=== PATIENT | female | born 1955 | race Caucasian/White ===

== ENCOUNTER 2017-02-28 05:22 | Day surgery (SDC) | payer OTHER ==
[~2017-02-28 05:22] MED LIST: ADVIL200 M2 PO; ALBUTEROL17 GM; ASPIRIN EC81 MG PO; ATIVAN0.5 M1 PO; BIOTIN PO; BP MED; CYANOCOBAL1000 MCG/3 SC; CYMBALTA60 M1 PO; EFFEXOR XR150 MG; ENTERIC COATED325 M PO; GLUCOPHAGE1000 M1 PO; GLUCOPHAGE500 MG; GLYBURIDE5 M1 PO; LOTENSIN20 MG PO; LOTREL 10-40 M1 EACH PO; LOTREL 5-10 MG1 CAP PO; NORCO 5/325 TAB1 TAB PO; OMEPRAZOLE40 M2 PO; PRAVACHOL40 M1 PO; PRISTIQ50 MG PO; PROVIGIL100 M1 PO; STEROID INHALER; TUMS200 MG PO; TYLENOL EXTRA500 M1 PO; VICTOZA 2-0.6 MG/0.1 SC; VITAMIN D5000 UNI1 PO; VITAMIN D50000 UNI1 PO
== END 2017-02-28 14:05 ==
LOC: SRG 05:22 → SHSB 05:23 → ORW 10:19 → PACU 10:37 → SHSB 11:45
PROC: 07B60ZX Excision of Left Axillary Lymphatic, Open Approach, Diagnostic (ICD-10-PCS; principal; 2017-02-28)
DX: C50.912 Malignant neoplasm of unspecified site of left female breast (principal); E11.9 Type 2 diabetes mellitus without complications; I10 Essential (primary) hypertension; E78.5 Hyperlipidemia, unspecified; F41.9 Anxiety disorder, unspecified; K21.9 Gastro-esophageal reflux disease without esophagitis; E66.9 Obesity, unspecified; Z90.710 Acquired absence of both cervix and uterus; Z91.041 Radiographic dye allergy status; Z79.899 Other long term (current) drug therapy; Z90.49 Acquired absence of other specified parts of digestive tract; Z98.890 Other specified postprocedural states; Z79.82 Long term (current) use of aspirin; Z88.0 Allergy status to penicillin
CPT/HCPCS: A9520; J2250; J2405; J2550; J2765; Q9968